=== PATIENT | male | born 1955 | race Caucasian/White ===

== ENCOUNTER 2025-04-12 10:08 | Outpatient (AMB) | payer MEDICARE, OTHER, SELFPAY ==
--- NOTE | 2025-04-12 10:12 | A.PHYSOV ---
Vital Signs 04/12/25 10:13 Height 5 ft 10 in Weight 215 lb BMI 30.8 Intake Visit Reasons: Right shoulder injection Intake Note: Patient is a 69 year old male here today for a right shoulder injection last injection helped for about a year Allergies shellfish derived (shellfish) Allergy (Unknown, Verified 04/09/25 12:38) Unknown HPI Comments Details: History of Present Illness The patient is a 69 year old male presenting with worsening right shoulder pain. He reports that the pain has never fully resolved, but he feels it is getting worse and believes a prior injection from about a year ago may have worn off. A previous MRI of the right shoulder from 2023 showed acromioclavicular joint osteoarthritis, a small amount of fluid in the subdeltoid bursa, and minimal fraying of the rotator cuff. The patient is an active skier and notes pain when reaching during the activity. He experiences the most pain with pushing movements and avoids overhead and bench presses, though he does perform curls and pull-downs. The patient denies any history of diabetes. Patient reports pain level today of 7/10. Pain Description - Location: The patient reports pain in the right shoulder, localized to the posterior aspect. - Onset and Duration: The pain is a chronic issue that has worsened over the last 3-4 months. - Exacerbating Factors: Pain is exacerbated by pushing movements, overhead reaching such as during skiing, and passive elevation of the arm. - Relieving Factors: A previous cortisone injection provided relief for approximately one year. - Quality: The patient describes the pain as a twinge with forward arm elevation. Results - Imaging: An MRI of the right shoulder from 2023 revealed acromioclavicular joint osteoarthritis, a small amount of fluid in the subdeltoid bursa, and minimal fraying of the rotator cuff. [facility] Surgical History (Updated 04/09/25 @ 12:33 by Priya Gregory MA) Hx of appendectomy Social History (Updated 04/09/25 @ 12:37 by Priya Gregory MA) Alcohol intake: current Alcohol intake frequency: does not drink Patient Tobacco Use Status: Former Tobacco user Use of substances other than those prescribed or required for medical reasons: No Review of Systems Narrative Review of Systems - Musculoskeletal: Reports worsening right shoulder pain, especially in the posterior aspect, exacerbated by pushing and reaching movements. - Endocrine: Denies a history of diabetes. Physical Exam Exam Exam: Physical Exam - Musculoskeletal: Bilateral shoulders were inspected. - There was no tenderness to palpation of the right shoulder. - Active forward flexion of the shoulder produced a slight twinge. Positive impingement testing - Internal and external rotation were intact. - Passive elevation of the right arm elicited pain. - Overall range of motion was noted to be good. Vital Signs: BMI result Body Mass Index 30.8 Office Procedures AMB Shoulder Injection AMB Shoulder Injection Procedure Details: Right Subacromial injection Procedure: The patient was educated about risks, complications and benefits including but not limited to increased serum glucose, infection, nerve damage, bleeding, tendon/ligament damage and pain. We agree with a subacromial injection is the next best step in the treatment plan. Verbal consent was obtained. Using aseptic technique, the skin was cleansed with Betadine. Ethyl chloride was used to desensitize the skin. Using a posterior approach, 40 mg of Kenalog and 3 mL 2% lidocaine were injected using a 25-gauge inch and a half needle into the subacromial space. The patient tolerated the procedure well without immediate complication. Postinjection instructions were given. Shoulder Injection - : Right All charges added?: Procedure code (CPT) selection complete Office Meds Kenalog 40 mg/mL suspension for injection Performing Provider: JUAN Trinh Performing Location: [facility] Administered by: JUAN Trinh on 04/15/25 09:29 Dose Route Admin Location Dispensed Lot Number Expiration Date [facility] Retail [employer] Trainee 40 mg intrabursal 1 mL [id number] [employer] Total Dispensed Waste 1 mL 0 % lidocaine (PF) 20 mg/mL (2 %) injection solution Performing Provider: JUAN Trinh Performing Location: [facility] Administered by: JUAN Trinh on 04/15/25 09:29 Dose Route Admin Location Dispensed Lot Number Expiration Date [facility] Retail [employer] Trainee 60 mg intrabursal 5 mL [id number] [employer] Total Dispensed Waste 5 mL 40 % Assessment & Plan Assessment & Plan (1) Impingement syndrome of right shoulder: Code(s): M75.41 - Impingement syndrome of right shoulder Category: Medical Plan Pain Management - Analgesia: A previous cortisone injection provided approximately one year of pain relief. - Activities of Daily Living: The pain interferes with skiing, specifically upon reaching, and with pushing exercises during workouts. Plan Patient was informed and verbally consented to the use of an ambient scribe for clinic note documentation during this visit. 1. Right Shoulder Pain The patient's symptoms are consistent with his prior MRI findings of AC joint osteoarthritis, subdeltoid bursitis, and minimal rotator cuff fraying, suggesting recurrent bursitis. A major rotator cuff tear is considered unlikely, and the condition does not appear to be surgical at this time. A cortisone injection was administered to the right shoulder to reduce inflammation. The patient was advised to begin rotator cuff strengthening exercises with light weights or bands, focusing on activities below 90 degrees of elevation and avoiding overhead or bench pressing. Discussion Notes I discussed that the patient's worsening right shoulder pain is likely the same problem as before, consistent with MRI findings of recurrent bursitis and rotator cuff fraying, and does not appear to be a major tear or a surgical issue. I recommended a cortisone injection to calm down the inflammation, to which the patient agreed. I reviewed the risks of the injection, including infection, nerve damage, and bleeding, and confirmed the patient is not diabetic. I explained that the injection typically helps within a few days to a week and can last from three to six months, though he has previously experienced a year of relief. I also advised starting rotator cuff exercises with light weights, avoiding overhead pressing to prevent grinding the shoulder. Patient Instructions - You have received a cortisone injection in your right shoulder today. - You should start to feel relief in a couple of days to a week, and it may last for six months to a year. - Begin doing rotator cuff exercises, which you can look up online. - Use light weights (e.g., 2-10 pounds) or resistance bands for these exercises. - Avoid overhead press and bench press exercises, as they can make the problem worse. Orders: Orders AMB Shoulder Injection 04/12/25 M75.41 - Impingement syndrome of right shoulder Coding Level of Care Code Tele Est Pt Level 3 (06471) Diagnoses Impingement syndrome of right shoulder M75.41 CPT Codes AMB Shoulder Injection - Hip/Bursa Injection - : Right ([id number])
[2025-04-12 10:13] VITALS: BMI 30.8
== END 2025-04-12 11:03 | disposition home or self-care (01) ==
LOC: HO.HPHYS 10:09
PROVIDERS: Visit Provider Physician Assistant
DX: M75.41 Impingement syndrome of right shoulder (principal)
CPT/HCPCS: 20610; 99213

== ENCOUNTER → 2025-04-12 10:08 | Outpatient (BNVA) | payer MEDICARE, OTHER, SELFPAY | PROVIDERS: Visit Provider Physician Assistant | DX: M25.511 Pain in right shoulder (principal); M75.41 Impingement syndrome of right shoulder | CPT/HCPCS: 20610; 99212; J2003; J3301 ==